=== PATIENT | male | born 1980 | race Caucasian/White ===

== ENCOUNTER → 2024-06-12 | Outpatient (CLI) | payer BC ==
[~2024-06-12] MED LIST: ALLEGRA 180MG180 MG PO; CELEXA 20MG20 MG/TAB PO; CIALIS20 MG PO; CRESTOR 10MG10 MG PO; FLEXERIL 1010 MG/TAB PO; INDERAL 20MG20 MG PO; INDERAL40 MG PO; LORTAB 5/500 501 TAB PO; NAPROXEN ER500 MG PO; NEXIUM 40MG40 MG PO; PEPCID COMPLETE1 CTB PO; TESTIM1% TP; VRAYLAR4.5 MG PO
== END ==
LOC: MHCPAIN 08:01
DX: M48.02 Spinal stenosis, cervical region (principal); M54.2 Cervicalgia
CPT/HCPCS: G0463